=== PATIENT | female | born 1980 | race Caucasian/White ===

== ENCOUNTER 2017-04-16 11:17 | Inpatient (IN) | payer BC ==
[2017-04-07 11:29] VITALS: BMI 22.1
--- NOTE | 2017-04-13 11:26 | HP ---
Admitting History and Physical - Primary Care Physician PCP: Nigel Mckinnon - Admission Chief Complaint: High risk for breast cancer History of Present Illness: Patient is a high risk for breast cancer female secondary to BRCA1 mutation positive status and family h/o breast and ovarian cancer. Patient is presenting for prophylactic mastectomy with reconstruction. Mammo and MRI done 12/16/2016 was c/w benign findings. 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) - Smoking History Smoking history: Never smoked Have you smoked in the past 12 months: No If you are a former smoker, when did you quit?: SOCIALLY MANY YEARS AGO - Alcohol/Substance Use Hx Alcohol Use: Yes (1 WINE DAILY) Home Medications - Allergies Allergies/Adverse Reactions: Allergies Allergy/AdvReac Type Severity Reaction Status Date / Time No Known Allergies Allergy Verified 04/07/17 11:17 - Home Medications Home Medications: Ambulatory Orders Multivitamin/Iron/Folic Acid [Centrum Adults Tablet] 1 each PO DAILY 04/07/17 Family Disease History - Family Disease History Family Disease History: CA: Grandparent (mat GF-lung cancer), Mother (ovarian cancer) Other Family History: paternal great aunt-ovarian cancer at 65. paternal great aunt-breast at 65. pat GF-melanoma at 65. pat sec cousin-brain cancer(?) at 10 Review of Systems - Review of Systems Constitutional: reports: No Symptoms Cardiovascular: reports: No Symptoms Respiratory: reports: No Symptoms Musculoskeletal: reports: Decreased ROM, Joint Pain, Muscle Pain Physical Examination Constitutional: Yes: Well Nourished Breast(s): Yes: Other (symmetrical A-cup breasts without skin changes or nipple discharge. No suspicious masses noted bilaterally. No suspicious adenopathy noted bilaterally.) Problem List - Problems (1) At high risk for breast cancer Code(s): Z91.89 - OT PERSONAL RISK FACTORS, NOT ELSEWHERE CLASSIFIED (2) BRCA gene mutation positive in female Code(s): Z15.01 - GENETIC SUSCEPTIBILITY TO MALIGNANT NEOPLASM OF BREAST; Z15.02 - GENETIC SUSCEPTIBILITY TO MALIGNANT NEOPLASM OF OVARY; Z15.09 - GENETIC SUSCEPTIBILITY TO OTHER MALIGNANT NEOPLASM (3) Family history of breast cancer Code(s): Z80.3 - FAMILY HISTORY OF MALIGNANT NEOPLASM OF BREAST Assessment/Plan Plan: bilateral mastectomy with implant reconstruction
[2017-04-16] MEDS ORDERED: BUPIVACAINE HCL/PF (5 MG/ML) 30 ML VIAL IJ ONE ×2 (11:55→11:56)
[2017-04-16] MEDS ORDERED: MIDAZOLAM HCL 2 MG/2 ML SINGLE DOSE VIAL ONE (11:55)
[2017-04-16] MEDS ORDERED: DEXAMETHASONE SOD PHOSPHATE/PF 10 MG/ML SDV ONE (11:55)
[2017-04-16] MEDS ORDERED: fentaNYL CITRATE 250 MCG/5 ML VIAL ONE ×2 (12:21→13:21)
[2017-04-16] MEDS ORDERED: ROCURONIUM BROMIDE 50 MG/5 ML VIAL ONE ×2 (12:21→12:23)
[2017-04-16] MEDS ORDERED: PROPOFOL 20 ML ONE ×5 (12:21)
[2017-04-16] MEDS ORDERED: ZOLPIDEM TARTRATE 5 MG TABLET PO PRN (14:20)
[2017-04-16] MEDS ORDERED: BUPIVACAINE HCL/PF 0.5% (5MG/ML) 10 ML VIAL ONE (15:02)
[2017-04-16] MEDS ORDERED: ONDANSETRON 4 MG/2 ML VIAL IVPUSH PRN (15:48)
[2017-04-16] MEDS ORDERED: oxyCODONE HCL 5 MG TABLET PO PRN (15:48)
[2017-04-16] MEDS ORDERED: PROMETHAZINE HCL 25 MG/1 ML VIAL IVPUSH PRN (15:48)
[2017-04-16] MEDS ORDERED: ONDANSETRON 4 MG/2 ML VIAL ONE (16:15)
[2017-04-16] MEDS: oxyCODONE HCL 5 MG TABLET PO PRN ×2 (18:00→21:57)
[2017-04-16] MEDS: DEXTROSE 5%-0.45% SALINE 1,000 ML IV SCH (18:25)
[2017-04-16] MEDS: CEFAZOLIN 1 GM/D5W 1 GM/50 ML BAG IVPB SCH ×2 (18:25→21:31)
--- NOTE | 2017-04-16 19:36 | OP ---
DATE OF OPERATION: 04/16/2017 PREOPERATIVE DIAGNOSIS: High risk of breast cancer, BRCA I positive. POSTOPERATIVE DIAGNOSIS: High risk of breast cancer, BRCA I positive. PROCEDURE: Bilateral total nipple-sparing mastectomy from inframammary approach with bilateral direct implant reconstruction with Alloderm with the implants placed prepectorally. ANESTHESIA: General endotracheal anesthesia. PRIMARY SURGEON: Rupinder Duran M.D. WAREHOUSE ADMINISTRATIVE ASSISTANT: Elizabeth Olmos PRIMARY SURGEON FOR BILATERAL DIRECT IMPLANT RECONSTRUCTION: Rupinder Nunes M.D., with director of first impressions Mariah Swanson COMPLICATIONS: There were no complications. Briefly, the patient is a 36-year-old G1, P0 premenopausal white female with [place] descent. She has a strong family history with her mother passing away from ovarian cancer at age 41. She has a paternal great aunt with breast cancer at age 65 and another paternal great aunt had ovarian cancer at age 65. A maternal grandfather had lung cancer and paternal grandfather had melanoma. The patient ended up testing BRCA 1 positive in 2015 and had a recent mammography and MRI in December 2016 which was negative. She does have a history of a spinal cord injury when she was 4 years old and has had multiple orthopedic procedures with some ambulatory difficulty. She was seen in consultation regarding risk reduction prophylactic surgery and is felt to be a good candidate, and she decided to go forward with the procedure. She was seen by plastic surgery preoperatively and chose to have bilateral implant reconstructions. Given the fact that she has had ambulatory difficulty and uses her upper body a lot with a walking cane, it was felt that a prepectoral implant was indicated. She was brought in for the procedure on April 16, 2017. In the holding area, sight verification was made, and informed consent was obtained. She was marked preoperatively by the plastic surgeon. The patient was brought into the operating room and laid on the OR table in the supine position. Venodynes were placed on the lower extremities prior to reduction. She received 2 g of Ancef prior to incision. Both breasts were sterilely prepped and draped in the usual fashion. She underwent general endotracheal anesthesia. Inframammary incisions were marked in the inframammary folds about 7 cm from the nipple. Each incision was marked about 8 cm in length. The left mastectomy was first performed. An incision was made, and the skin edge was everted, and the breast was retracted inferiorly using [place] clamps. The skin flap was raised using the PEEK radiofrequency device superiorly to the level of the clavicle, medially to the level of the sternum, laterally to the level of the latissimus, and inferiorly below the level of the inframammary fold. The breast was taken out up to pectoralis major muscle from inferomedial to superolateral and completely removed intact. It was oriented with a long lateral, short superior suture, and weighed to allow for appropriate cosmetic result. Skin flaps were trimmed for good cosmetic result. Hemostasis was achieved using electrocautery, and the wound was copiously irrigated with warm sterile saline. A retroareolar biopsy was taken underneath the left nipple areolar complex, sent for frozen section, came back negative, so the left nipple was spared. At this point the right mastectomy was performed. Again, through inframammary incision 8 cm in length, symmetrical to the left breast incision. The skin edge was everted, and the breast was retracted inferiorly using [place]worth clamps. The skin flap was raised using the PEAK radiofrequency device superiorly to the level of the clavicle, medially to the level of the sternum, laterally to the level of the latissimus, and inferiorly below the level of the inframammary fold. The breast was taken out up to pectoralis major muscle using electrocautery from inferomedial to superolateral, completely removed intact. It was oriented with a long lateral, short superior suture, and weighed to allow for appropriate cosmetic result. Skin flaps were trimmed for good cosmetic result, and hemostasis was achieved, and the wound was copiously irrigated with warm sterile saline. The specimen was sent down to pathology in formalin. A retroareolar biopsy was taken underneath the right nipple areolar complex, came back negative, so the right nipple was spared. At this point, Dr. Nunes became the primary surgeon and performed bilateral prepectoral textured implant reconstruction with Alloderm placed between the implant and the skin. This will be dictated separately by plastic surgery. All wounds will be closed by plastic surgery. Two Sourav drains will be placed around each implant, brought through separate stab incisions on the lateral skin flap. The patient will be extubated and recovered, and then admitted postoperatively for postoperative pain and wound management. All sponge, needle counts are correct at this point in the case. Estimated blood loss was about 75 mL, and she was hemodynamically stable throughout. We did use the SPY skin perfusion device prior to the implant reconstruction and after the implant reconstruction, and she had excellent skin perfusion bilaterally. RUPINDER DURAN M.D. [id number]
[2017-04-16] MEDS: ONDANSETRON 4 MG/2 ML VIAL IVPUSH PRN (22:09)
[2017-04-17] MEDS: oxyCODONE HCL 5 MG TABLET PO PRN ×2 (00:01→04:04)
[2017-04-17] MEDS: CEFAZOLIN 1 GM/D5W 1 GM/50 ML BAG IVPB SCH ×4 (02:06→21:17)
--- NOTE | 2017-04-17 06:48 | OP ---
DATE OF OPERATION: 04/16/2017 SURGEON: Trina Nunes MD SALES REPRESENTATIVE CHURCH FURNITURE SURGEON: Joselyn Avalos PA-C CO-SURGEON: Rupinder Mckinnon MD PREOPERATIVE DIAGNOSES: 1. Bilateral acquired chest wall deformity status post bilateral mastectomy (611.89). 2. Personal history of genetic carcinoma. POSTOPERATIVE DIAGNOSES: 1. Bilateral acquired chest wall deformity status post bilateral mastectomy (611.89). 2. Personal history of genetic carcinoma. PROCEDURE: 1. Right immediate breast reconstruction utilizing immediate insertion of silicone breast implant and AlloDerm reconstruction. 2. Left immediate breast reconstruction utilizing immediate insertion of silicone breast implant and AlloDerm reconstruction. 3. Intravenous injection of indocyanine green dye and intraoperative Spy diagnostic evaluation of noncoronary intraoperative fluorescein vascular angiography x2. ANESTHESIA: General. The patient underwent bilateral mastectomy which will be dictated under separate cover by Dr. Mckinnon and this is the reconstructive procedure. OPERATIVE PROCEDURE IN DETAIL: The patient was taken to the operating room. After induction of general anesthesia in the supine position, both arms were extended and padded. Venodyne boots were placed. The entire chest wall was painted with ChloraPrep solution over its entire extent, and sterile drapes were placed in the usual fashion. The markings, which had been made in the standing position preoperatively, were reoutlined with the patient's knowledge. Timeout procedure was performed. Attention was turned by Dr. Mckinnon to the mastectomies. Bilateral inframammary incisions were made and Dr. Mckinnon performed mastectomies. This will be dictated under separate cover. Upon completion of the mastectomies, the wounds were copiously irrigated and attention was turned to the right breast. A subpectoral dissection was begun on the right breast, superiorly from the 2nd rib, medially to the sternal fibers, and down to the inframammary fold, elevating the pectoralis major muscle from its insertion. At this point, 2 sheets on each side, 4 total sheets, 8.0 x 16.0 AlloDerm Contour perforated material placed on each breast were brought into the field and sutured superiorly along the pectoralis major muscle after rehydration. This was carried along the lateral mammary fold and down the side of the breast reconstruction. At this point, a Natrelle 410 highly cohesive anatomically-shaped silicone-filled implant, style FF, 375 mL, was chosen. The left breast tissue removed was 101 g, and the right breast approximately 105 g. This implant was placed and then sutured with 3-0 Vicryl suture continued along the inframammary fold, completely covering the implant itself. The exact same procedure was carried out symmetrically on the opposite breast, also placing a Natrelle 410 highly cohesive anatomically-shaped silicone-filled implant, style FF, 375 mL, implant in the same subpectoral pocket. Good symmetry was seen in the sitting position. After the implants were in place, the patient was injected with 10 mL of indocyanine green dye and the Spy imaging system was brought into the field. The skin flowed to the right and left breasts and the nipple areolar complex, and the entire skin flaps were evaluated and seen to be viable with good blood flow. Two Osei-Schwarz drains were brought out through separate stab wounds laterally. The Smart Infuser pump catheter was inserted medially and into the subpectoral position. Both wounds were closed symmetrically using 3-0 PDS suture on the deep tissue, 3-0 in a deep dermal fashion, and 4-0 in a subcuticular fashion. Both wounds were dressed sterilely with Mastisol and Steri-Strips with a surgical bra and a compression strap. The patient tolerated the procedure well. She was awakened, extubated and transferred to the recovery room in satisfactory condition. The nursing assistants teacher was present during the entire portion of the operation and closure. RUPINDER NUNES M.D. [id number]
[2017-04-17 08:45] LABS: MCH 30.6 pg (25.7-33.7); MCHC 31.6 g/dl (32.0-36.0); MEAN CELL VOLUME 96.9 fl (80-96); MEAN PLT VOLUME 9.9 fl (7.5-11.1); PLATELET COUNT 285 K/MM3 (134-434); RDW 12.6 % (11.6-15.6); WHITE BLOOD COUNT 11.8 K/mm3 (4.0-10.8)
--- NOTE | 2017-04-17 09:49 | PN ---
Progress Note, Physician Chief Complaint: S/P bilateral mastectomy with reconstruction POD#1 History of Present Illness: Patient seen this am at the bedside and reports pain that is controlled with orals. Otherwise patient is comfortable. - Current Medication List Current Medications: Active Medications Acetaminophen (Tylenol -) 650 mg PO Q4H PRN PRN Reason: FEVER Cefazolin Sodium (Ancef 1 Gm Premixed Ivpb -) 1 gm in 50 mls @ 100 mls/hr IVPB Q6H-IV JONI Stop: 04/23/17 14:59 Last Admin: 04/17/17 02:06 Dose: 100 mls/hr Dextrose/Sodium Chloride (D5-1/2ns -) 1,000 mls @ 100 mls/hr IV ASDIR JONI Last Admin: 04/16/17 18:25 Dose: Not Given Ondansetron HCl (Zofran Injection) 4 mg IVPUSH Q6H PRN PRN Reason: NAUSEA AND/OR VOMITING Last Admin: 04/16/17 22:09 Dose: 4 mg Oxycodone HCl (Roxicodone -) 5 mg PO Q4H PRN PRN Reason: MILD PAIN Last Admin: 04/17/17 08:32 Dose: 5 mg Oxycodone HCl (Roxicodone -) 10 mg PO Q4H PRN PRN Reason: SEVERE PAIN Last Admin: 04/17/17 04:04 Dose: 10 mg Zolpidem Tartrate (Ambien -) 5 mg PO HS PRN PRN Reason: Insomnia - Objective Vital Signs: Vital Signs Temperature 98.0 F 04/17/17 06:00 Pulse Rate 71 04/17/17 06:00 Respiratory Rate 18 04/17/17 06:00 Blood Pressure 102/54 04/17/17 06:00 O2 Sat by Pulse Oximetry (%) 100 04/17/17 08:49 Constitutional: Yes: Well Nourished, Calm Breast(s): Yes: Other (Positive ecchymosis noted bilaterally. Nipple areolar complex with good color. Flaps are warm. AZALIA x 4 with serosanginous discharge noted.) Labs: CBC, BMP 04/17/17 08:15 Problem List - Problems (1) At high risk for breast cancer Code(s): Z91.89 - OTH PERSONAL RISK FACTORS, NOT ELSEWHERE CLASSIFIED (2) BRCA gene mutation positive in female Code(s): Z15.01 - GENETIC SUSCEPTIBILITY TO MALIGNANT NEOPLASM OF BREAST; Z15.02 - GENETIC SUSCEPTIBILITY TO MALIGNANT NEOPLASM OF OVARY; Z15.09 - GENETIC SUSCEPTIBILITY TO OTHER MALIGNANT NEOPLASM (3) Family history of breast cancer Code(s): Z80.3 - FAMILY HISTORY OF MALIGNANT NEOPLASM OF BREAST Assessment/Plan Plan: OOB today with assistance product manager financial services to see patient for VNS Continue current tx regime Plan for discharge in am
[2017-04-17] MEDS: ONDANSETRON 4 MG/2 ML VIAL IVPUSH PRN (10:01)
[2017-04-17] MEDS ORDERED: PROMETHAZINE HCL 25 MG TABLET PO PRN (12:59)
[2017-04-17] MEDS: ACETAMINOPHEN 325 MG TABLET (FP) PO PRN (13:47)
[2017-04-17] MEDS ORDERED: traMADol HCL 50 MG TABLET PO PRN (14:14)
--- NOTE | 2017-04-17 14:18 | PN ---
Progress Note (short form) - Note Progress Note: 36F POD1 s/p b/l prophylactic mastectomy with reconstruction under GA-ETT. PT c/ o nausea despite zofran. Pain is well controlled. Will ad Pepcid bid and one time benadryl. Also adding tramadol prn as an alternative to oxycodone.
[2017-04-17] MEDS: FAMOTIDINE IV 20 MG/12 ML VIAL IVPUSH SCH ×2 (14:23→22:09)
[2017-04-17] MEDS: DEXTROSE 5%-0.45% SALINE 1,000 ML IV SCH (15:46)
[2017-04-18] MEDS: ACETAMINOPHEN 325 MG TABLET (FP) PO PRN ×2 (01:58→06:20)
[2017-04-18] MEDS: CEFAZOLIN 1 GM/D5W 1 GM/50 ML BAG IVPB SCH ×2 (02:02→09:13)
[2017-04-18 06:08] VITALS: BP 106/71; PULSE 63; TEMP 99.1
[2017-04-18] MEDS: FAMOTIDINE IV 20 MG/12 ML VIAL IVPUSH SCH (10:00)
--- NOTE | 2017-04-21 12:41 | PATH ---
Surgical Pathology Report Patient Name: HOMERO AGUSTIN Med. Rec. #: [id number] /Age/Gender: 1980 (Age: 36) / F Account: [id number] Location: [facility] Taken: 04/16/2017 Received: 04/16/2017 Reported: 04/21/2017 Physicians: Nigel Mckinnon M.D. Specimen(s) Received A: LEFT RETROAREOLAR BIOPSY. FS B: RIGHT RETROAREOLAR BIOPSY. FS C: LEFT BREAST MASTECTOMY D: RIGHT BREAST MASTECTOMY Clinical History BRCA+ bilateral prophylactic Intraoperative Consult Diagnosis A. Left breast retroareolar biopsy, frozen section: Negative for malignancy. B. Right breast retroareolar biopsy, frozen section: Negative for malignancy. Hema Hanna M.D., 04/16/70 Final Diagnosis A. RETROAREOLA, LEFT, BIOPSY (FS): BENIGN BREAST TISSUE; NEGATIVE FOR MALIGNANCY. B. RETROAREOLA, RIGHT, BIOPSY (FS): BENIGN BREAST TISSUE; NEGATIVE FOR MALIGNANCY. C. BREAST, LEFT, NIPPLE-SPARING MASTECTOMY: BENIGN BREAST TISSUE SHOWING FIBROCYSTIC CHANGES INCLUDING CYSTIC APOCRINE METAPLASIA AND STROMAL FIBROSIS. D. BREAST, RIGHT, NIPPLE-SPARING MASTECTOMY: BENIGN BREAST TISSUE SHOWING FIBROCYSTIC CHANGES INCLUDING CYSTIC APOCRINE METAPLASIA, MILD USUAL DUCTAL HYPERPLASIA (UDH), STROMAL FIBROSIS AND SMALL FIBROADENOMA. Electronically Signed Elina Hanna M.D. Gross Description A. Received fresh labeled "left breast retroareolar biopsy," is a 0.8 x 0.5 x 0.2 cm portion of red and yellow sung soft tissue. A frozen section is performed on the specimen. The frozen section residue is entirely submitted in one cassette. B. Received fresh labeled "right breast retroareolar biopsy," is a 0.4 x 0.3 x 0.2 cm portion of red and yellow sung soft tissue. A frozen section is performed on the specimen. The frozen section residue is entirely submitted in one cassette. C. Received in formalin, labeled "left breast," is a 100 gram, 12.0 x 10.2 x 2.2 cm. left mastectomy specimen with a short suture marking the superior aspect and a long suture marking the lateral aspect of the specimen, per the surgeon. There is no skin or nipple present. The deep margin is inked black and the anterior soft tissue margin is inked blue. The specimen is serially sectioned from medial to lateral. Sectioning reveals abundant dense white fibrous tissue. Telephone Lines Repairer sections are submitted in 14 cassettes as follows: 1-3-upper outer quadrant; 4-6-lower outer quadrant; 7-9-upper inner quadrant; 10-12-lower inner quadrant; 13-anterior soft tissue margin; 14-deep margin. D. Received in formalin, labeled "right breast," is a 103 gram, 11.0 x 9.0 x 2.1 cm. right mastectomy specimen with a short suture marking the superior aspect and a long suture marking the lateral aspect of the specimen, per the surgeon. There is no skin or nipple present. The deep margin is inked black and the anterior soft tissue margin is inked blue. The specimen is serially sectioned from lateral to medial. Sectioning reveals abundant dense, white fibrocystic tissue. Telephone Lines Repairer sections are submitted in 14 cassettes as follows: 1-3-upper outer quadrant; 4-6-lower outer quadrant; 7-9-upper inner quadrant; 10-12-lower inner quadrant; 13-anterior soft tissue margin; 14-deep margin. Time to formalin fixation: 38 minutes Total formalin fixation time: Approximately 27 hours. 04/17/201704/17/2017
== END 2017-04-18 14:00 | disposition home or self-care (01) | DRG 585 ==
LOC: FM/S 11:17
PROVIDERS: ADMIT Surgery Surgical Oncology; ATTEND Surgery Surgical Oncology
PROC: 0HTV0ZZ Resection of Bilateral Breast, Open Approach (ICD-10-PCS; principal; 2017-04-16 12:48)
PROC: 0HUV0KZ Supplement Bilateral Breast with Nonautologous Tissue Substitute, Open Approach (ICD-10-PCS; 2017-04-16 12:48)
DX: Z40.01 Encounter for prophylactic removal of breast (principal); R11.0 Nausea; Z42.1 Encounter for breast reconstruction following mastectomy; Z80.3 Family history of malignant neoplasm of breast; Z15.01 Genetic susceptibility to malignant neoplasm of breast; Z80.41 Family history of malignant neoplasm of ovary
CPT/HCPCS: 36415; 84703; 85027; 88307-TC; 88331-TC; 94760